=== PATIENT | female | born 1950 | race Caucasian/White ===

== ENCOUNTER 2022-06-01 21:41 | Emergency (ER) | payer MEDICARE, SELFPAY ==
--- NOTE | ~2022-06-01 | XR_ITS ---
EXAM: XR wrist LT min 3V DATE: 06/01/2022 22:17 HISTORY: INJ FALL PAIN . COMPARISON: None available. FINDINGS: Normal mineralization. Comminuted intra-articular mildly impacted fracture of the distal l eft radius, with mild dorsal angulation. Mildly displaced left ulnar styloid fracture. No lytic or bl astic lesion. Joint spaces are maintained. No erosion or periosteal change. Soft tissues within eugenia l limits. IMPRESSION: Comminuted, intra-articular, mildly impacted and angulated fracture of the distal left ra dius. Mildly displaced left ulnar styloid fracture. Reviewed, dictated and finalized at location K. AIDE IMPRESSION: Comminuted, intra-articular, mildly impacted and angulated fracture of the distal left radius. Mildly displaced left ulnar styloid fracture.
[2022-06-01 21:49] VITALS: BP 126/94; PULSE 79; RESP 16; TEMP 36.8; O2SAT 100
--- NOTE | 2022-06-02 00:54 | ED.UPPEXIN ---
HPI - Extremity Injury (Upper) General Chief Complaint: Extremity Injury, Upper <PADDY Kiser Last Filed: 06/02/22 01:10> Stated Complaint: fall with acute fracture of left wrist via xray <PADDY Kiser Last Filed: 06/02/22 01:10> Time Seen by Provider: 06/02/22 00:31 <PADDY Kiser Last Filed: 06/02/22 01:10> Source: patient, family and old records reviewed <PADDY Kiser Last Filed: 06/02/22 01:10> Mode of arrival: ambulatory <PADDY Kiser Filed: 06/02/22 01:10> Limitations: no limitations <PADDY Kiser Last Filed: 06/02/22 01:10> History of Present Illness HPI narrative: Patient is a 71-year-old female who presents the ED with report of a left wrist fracture. Patient is a resident of a memory care assisted living facility. Per daughter at bedside, she had a ground-level mechanical fall today and tried to catch herself with her arms outstretched. She complains of pain and swelling to her left wrist. She has not taken anything for pain. She denied any head injury, LOC, prodromal symptoms prior to the fall. She denies any other areas of pain. Denies left elbow pain. Patient had x-rays performed at the facility which showed distal radius and ulnar styloid fractures. She was then referred to ED for further evaluation. <PADDY Kiser Last Filed: 06/02/22 01:10> Related Data Allergies/Adverse Reactions: Allergies Allergy/AdvReac Type Severity Reaction Status Date / Time No Known Allergies Allergy Verified 06/01/22 21:55 <PADDY Kiser Last Filed: 06/02/22 01:10> Review of Systems Review of Systems: CONSTITUTIONAL: Denies fever, chills, or sweats. EYES: Denies visual changes. ENT: Denies rhinorrhea, congestion, sore throat. CARDIOVASCULAR: Denies chest pain. RESPIRATORY: Denies dyspnea. GASTROINTESTINAL: Denies abdominal pain, nausea, vomiting. GENITOURINARY: Denies dysuria or hematuria. SKIN: Reports swelling to left wrist. MUSCULOSKELETAL: Reports left wrist pain. Denies left elbow pain. NEUROLOGIC: Denies HI, LOC, dizziness, headache, numbness, or weakness. <Andra Feldman PA-C - Last Filed: 06/02/22 01:10> All systems reviewed & are unremarkable except as noted in HPI and below <Andra Feldman PA-C - Last Filed: 06/02/22 01:10> PMFSH Past Medical History Medical History: Medical History (Updated 06/02/22 @ 01:10 by Andra Feldman PA-C) Dementia <Andra Feldman PA-C - Last Filed: 06/02/22 01:10> Surgical History Surgical History: Surgical History (Updated 06/02/22 @ 00:57 by Andra Feldman PA-C) No pertinent past surgical history <Andra Feldman PA-C - Last Filed: 06/02/22 01:10> Social History Social History: Social History (Updated 06/02/22 @ 00:58 by Andra Feldman PA-C) Smoking status: Never smoker <Andra Feldman PA-C - Last Filed: 06/02/22 01:10> Exam Narrative: GENERAL: Well appearing, well-nourished, non-toxic, in no acute distress. HEAD: Normocephalic, atraumatic. NECK: Supple. No adenopathy, no masses. RESPIRATORY: Airway patent, respirations nonlabored. Clear to auscultation bilaterally, no rales, rhonchi, wheezing. CARDIOVASCULAR: Regular rate and rhythm without murmurs, rubs, or gallops. Radial pulses 2+ and equal bilaterally. MUSCULOSKELETAL: Moves all extremities. Strength/ROM intact. Swelling and ecchymosis noted to left wrist. TTP mainly over left wrist distal radius. Very minimal Colles angulation deformity. Sensation intact. Able to move all fingers. Good capillary refill. No tenderness to palpation along metacarpals or throughout left elbow joint. SKIN: Warm, dry, normal color. No rashes. NEURO: A&O X3. Speech clear. Cranial nerves II-XII grossly intact. Steady gait. No ataxic movements. PSYCHIATRIC: Appropriate mood and affect. Normal in
[2022-06-02] MEDS: IBUPROFEN 600 MG TABLET PO (00:57)
== END 2022-06-02 01:12 ==
PROVIDERS: Emergency Provider Emergency Medicine
DX: S52.532A Colles' fracture of left radius, initial encounter for closed fracture (principal); S52.612A Displaced fracture of left ulna styloid process, initial encounter for closed fracture; F03.90 Unspecified dementia, unspecified severity, without behavioral disturbance, psychotic disturbance, mood disturbance, and anxiety; W19.XXXA Unspecified fall, initial encounter
CPT/HCPCS: 29125; 73110; 99284; A4565; A9270